=== PATIENT | male | born 1950 ===

== ENCOUNTER 2017-08-05 07:40 | Day surgery (SDC) | payer BC, MEDICARE ==
[2017-08-05 08:27] VITALS: TEMP 97.5
[2017-08-05] MEDS ORDERED: Propofol 10 mg/ml Inj (20 ML) ONE (09:41)
[2017-08-05] MEDS ORDERED: Lidocaine Hydrochloride 5 ML INJ ONE (09:50)
[2017-08-05 14:10] VITALS: O2SAT 99
[2017-08-05 14:13] VITALS: BP 147/83; PULSE 65; RESP 17
== END 2017-08-05 10:45 | disposition home or self-care (01) ==
LOC: C.ENDO 07:40
PROVIDERS: ATTEND Internal Medicine Gastroenterology
DX: Z12.11 Encounter for screening for malignant neoplasm of colon (principal); K57.30 Diverticulosis of large intestine without perforation or abscess without bleeding; K64.8 Other hemorrhoids
CPT/HCPCS: 45378; J2704; J7040